=== PATIENT | female | born 1945 | race Caucasian/White ===

== ENCOUNTER 2018-12-06 15:31 | Inpatient (IN) | payer MEDICARE, OTHER, SELFPAY ==
[2018-12-06] VITALS (12 sets, daily range): BP systolic 97–136; BP diastolic 37–77; PULSE 50–78; RESP 13–18; TEMP 36.5–37.2; O2SAT 94–98; BMI 18.2
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
[2018-12-06] MEDS: TET,DIPH,PERTUSS(ACELL),VAC/PF 0.5 ML SYRINGE IM (16:24)
[2018-12-06 16:25] LABS: BUN Creatinine Ratio 41.7 (6-22); Blood Urea Nitrogen 25 mg/dL (7-17); Calcium 9.1 mg/dL (8.4-10.2); Carbon Dioxide 27 mmol/L (22-32); Chloride 105 mmol/L (98-107); Estimated Glomerular Filt Rate > 60.0 mL/min (>60); Glucose 129 mg/dL (80-110); HEMOLYSIS 44 (0-50); Potassium 4.1 mmol/L (3.4-5.1); Sodium 140 mmol/L (137-145)
--- NOTE | 2018-12-06 16:50 | PC.NURSE ---
bilateral eye pH 7.0
[2018-12-06] MEDS: MORPHINE 2 MG/ML INJ IV ×2 (17:06→18:43)
[2018-12-06] MEDS: SODIUM CHLORIDE 0.9% 1,000 ML 150 ML IV (17:06)
[2018-12-06] MEDS: ONDANSETRON 4 MG/2 ML INJ IV ×4 (17:06→22:55)
[2018-12-06 17:22] LABS: Add Manual Diff / Slide Review NO; Basophils Absolute Auto 0 /uL (0-100); Basophils Percent Auto 0.1 % (0-2); Eosinophils Absolute Auto 0 /uL (0-450); Eosinophils Percent Auto 0.1 % (2-4); Hematocrit 39.8 % (36-46); Hemoglobin 13.2 g/dL (12.0-16.0); Lymphocytes Absolute Auto 700 /uL (1100-4500); Lymphocytes Percent Auto 4.4 % (25-40); Mean Corpuscular HGB Conc 33.2 % (30-36); Mean Corpuscular Hemoglobin 29.9 PG (26-34); Mean Corpuscular Volume 90.1 fL (80-100); Monocytes Absolute Auto 700 /uL (0-900); Monocytes Percent Auto 4.2 % (3-14); Neutrophils Absolute Auto 14000 /uL (1500-7000); Neutrophils Percent Auto 91.2 % (50-75); Platelet Count 184 X10^3/uL (150-400); Red Blood Cell Count 4.41 X10^6/uL (4.0-5.2); Red Cell Distribution Width 13.1 % (11.6-14.8); White Blood Cell Count 15.4 X10^3/uL (4.5-11.0)
[2018-12-06 17:26] LABS: PTT Partial Thromboplastin Tim 31 SECONDS (26.4-36.2)
[2018-12-06 17:28] LABS: Creatine Kinase 604 U/L (30-135); Lipase 96 U/L (23-300)
[2018-12-06 17:29] LABS: Alanine Aminotransferase 53 IU/L (9-52); Albumin 3.9 g/dL (3.5-5.0); Albumin Globulin Ratio 1.4 (1.0-2.8); Alkaline Phosphatase 55 U/L (38-126); Aspartate Aminotransferase 68 IU/L (14-36); Bilirubin Total 0.5 mg/dL (0.2-1.3); Bilirubin Unconjugated 0.4 mg/dL (0.0-1.1); Globulin 2.8 g/dL (1.7-4.1); HEMOLYSIS < 15 (0-50); Total Protein 6.7 g/dL (6.3-8.2)
[2018-12-06 17:40] LABS: Troponin I < 0.012 ng/mL (0.01-0.034)
[2018-12-06] MEDS: ACETAMINOPHEN 325 MG TABLET 975 MG PO (18:44)
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
--- NOTE | 2018-12-06 21:14 | PC.NURSE ---
PATIENT TAKEN IN BED TO IMAGING, HARD COLLAR IN PLACE,SCDs ON NPO
[2018-12-06] MEDS: LACTATED RINGERS 500 ML 1000 ML IV (21:46)
[2018-12-06] MEDS: LACTATED RINGERS 1,000 ML 84 ML IV (21:46)
[2018-12-06] MEDS: GABAPENTIN 600 MG TABLET PO (21:47)
[2018-12-06] MEDS: HEPARIN 5,000 UNIT/ML VIAL 5000 UNIT SUBCUT (21:47)
[2018-12-06] MEDS: CELECOXIB 100 MG CAPSULE 200 MG PO (21:47)
[2018-12-06] MEDS: METHOCARBAMOL 500 MG TABLET 750 MG PO (21:50)
[2018-12-06] MEDS: POLYETHYLENE GLYCOL 3350 17 GM POWD.PACK PO (22:01)
[2018-12-06] MEDS: ACETAMINOPHEN 325 MG TABLET 650 MG PO (23:43)
[2018-12-07] VITALS (7 sets, daily range): BP systolic 93–121; BP diastolic 46–61; PULSE 50–92; RESP 14–18; TEMP 36.2–36.7; O2SAT 92–97
[2018-12-07] MEDS: HYDROMORPHONE 0.5 MG INJ IV (01:13)
[2018-12-07] MEDS: PROMETHAZINE 12.5 MG SUPP PR (03:30)
--- NOTE | 2018-12-07 03:42 | PC.NURSE ---
Up to bsc observing spinal precautions and robert well an voided, UA sent. Had nausea and emesis again with movement and phenergan supp given.
[2018-12-07] MEDS: LACTATED RINGERS 1,000 ML 84 ML IV ×2 (04:43→16:24)
[2018-12-07 05:38] LABS: Add Manual Diff / Slide Review NO; Basophils Absolute Auto 0 /uL (0-100); Basophils Percent Auto 0.2 % (0-2); Eosinophils Absolute Auto 0 /uL (0-450); Hemoglobin 11.4 g/dL (12.0-16.0); Lymphocytes Absolute Auto 500 /uL (1100-4500); Lymphocytes Percent Auto 6.1 % (25-40); Mean Corpuscular HGB Conc 34.6 % (30-36); Mean Corpuscular Hemoglobin 30.7 PG (26-34); Mean Corpuscular Volume 88.9 fL (80-100); Monocytes Absolute Auto 400 /uL (0-900); Monocytes Percent Auto 4.8 % (3-14); Neutrophils Absolute Auto 8000 /uL (1500-7000); Neutrophils Percent Auto 88.9 % (50-75); Platelet Count 141 X10^3/uL (150-400); Red Blood Cell Count 3.72 X10^6/uL (4.0-5.2); Red Cell Distribution Width 13.2 % (11.6-14.8)
[2018-12-07 05:44] LABS: BUN Creatinine Ratio 38.3 (6-22); Blood Urea Nitrogen 23 mg/dL (7-17); Calcium 8.5 mg/dL (8.4-10.2); Carbon Dioxide 29 mmol/L (22-32); Chloride 105 mmol/L (98-107); Estimated Glomerular Filt Rate > 60.0 mL/min (>60); Glucose 135 mg/dL (80-110); HEMOLYSIS < 15 (0-50); Magnesium 2.2 mg/dL (1.6-2.3); Potassium 3.9 mmol/L (3.4-5.1); Sodium 138 mmol/L (137-145)
[2018-12-07] MEDS: ACETAMINOPHEN 325 MG TABLET 650 MG PO ×4 (06:34→23:57)
[2018-12-07] MEDS: HEPARIN 5,000 UNIT/ML VIAL 5000 UNIT SUBCUT ×3 (06:35→20:57)
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
[2018-12-07] MEDS: ASPIRIN EC 81 MG TABLET PO (10:17)
[2018-12-07] MEDS: METHOCARBAMOL 500 MG TABLET 750 MG PO ×4 (10:17→20:55)
[2018-12-07] MEDS: POLYETHYLENE GLYCOL 3350 17 GM POWD.PACK PO ×2 (10:32→20:57)
[2018-12-07] MEDS: CELECOXIB 200 MG CAPSULE PO ×2 (11:19→20:55)
--- NOTE | 2018-12-07 11:42 | PC.NURSE ---
SHIFT 7a - 3p Report received, care assumed. Pt. slightly groggy but oriented, pleasant, denies pain. Hard cervical collar in place. Discussed spinal precautions. Pt states she was allowed to get up to BSC previously; I verified the full spinal precautions order. Imaging ordered of the lumbar spine and radiology came with a wheelchair to get pt; again, verified pt. has spinal precautions and is not permitted to sit. (Dr. Campos says she is ok to stand for lumbar x-ray, but is not to sit on wheelchair or BSC.) orthopedic tech says they will come back for her later. Confirmed with Dr. Campos that pt. needs to travel to radiology via bed/gurney, then log roll to a standing position the best she is able. Radiology informed, pt. to XR at 1220.
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
--- NOTE | 2018-12-07 14:34 | PM.CHAP ---
flag on file. Stopped to visit and pray with patient at her request. referral to [facility].
--- NOTE | 2018-12-07 16:53 | PC.NURSE ---
Addendum entered by Michelle Sagastume R.N. 12/07/18 22:34: Beverly has voided tonight. Walked hallways x 2, reports some pain relief from mobilization. Gait steady w/fww & SBA. Addendum entered by Michelle Sagastume R.N. 12/07/18 18:35: Dr Campos in room to consult with patient & her spouse. New orders for general diet. I called in dinner order for her. also ordered for patient to get up & walk in hallway & to assess mobility. She is eating meal now, requesting to get up and walk after finished with meal. Original Note: Evening note: Beverly resting in bed, laying flat with hard cervical collar on. She is Ox3, conversive, speech clear. VS stable, BP borderline 93/61. Reports pain tolerable, denies need for IV Dilaudid. She reports slight urge to void, 2 assist to stand at bedside using strict logrolling technique & full spinal precautions. Pt unable to void, reports pesary is probably in the way. Bladder scan = 278 ml and 253 ml. Back to bed, will reassess. Remains NPO, awaiting surgeon round to discuss xray results.
--- NOTE | 2018-12-07 17:53 | P.PN_ITS ---
Subjective Date Patient Seen: 12/07/18 Time Patient Seen: 17:51 Interval history: Upright lumbar spine films reviewed and discussed with Dr Dasilva of [facility] Neurosurgery. Lumbar spine fracture is stable and does not need external bracing or internal fixation. Patient is cleared to mobilize from Spine perspective In addition C-spine re-examine no posterior tenderness no tenderness with flexion extension or rotation. Continues to have full sensation of motion in all 4 extremities distally Spine is now fully cleared Okay to ambulate Okay for diet Exam Vital Signs (past 8 hours): - 12/07/18 11:22 12/07/18 15:30 12/07/18 16:12 Temperature 97.8 F 97.1 F L Pulse Rate 50 L 50 L Respiratory Rate 16 18 Blood Pressure 100/56 L 96/61 Pulse Oximetry 96 95 97 Oxygen Delivery Method Room Air Oxygen Flow Rate 0 Objective Labs Result Diagrams: 12/07/18 05:00 12/07/18 05:00 Labs: Laboratory Results - last 24 hr 12/06/18 12/07/18 12/07/18 16:55 05:00 05:00 WBC 9.0 RBC 3.72 L Hgb 11.4 L Hct 33.0 L MCV 88.9 MCH 30.7 MCHC 34.6 RDW 13.2 Plt Count 141 L Neut % (Auto) 88.9 H Lymph % (Auto) 6.1 L [place] % (Auto) 4.8 Eos % (Auto) 0.0 L Baso % (Auto) 0.2 Neut # (Auto) 8000 H Lymph # (Auto) 500 L [place] # (Auto) 400 Eos # (Auto) 0 Baso # (Auto) 0 Sodium 138 Potassium 3.9 Chloride 105 Carbon Dioxide 29 BUN 23 H Creatinine 0.60 Estimated GFR > 60.0 BUN/Creatinine Ratio 38.3 H Glucose 135 H Calcium 8.5 Magnesium 2.2 Blood Type A Positive Antibody Screen Negative Quality VTE Deep Vein Thrombosis/Pulmonary Embolism Present on Admission: No
[2018-12-07] MEDS: GABAPENTIN 600 MG TABLET PO (20:57)
[2018-12-08 00:42] VITALS: O2SAT 92
--- NOTE | 2018-12-08 02:28 | PC.NURSE ---
Patient ambulated the hallway from 0210 to 0230 and using a front wheel walker. Steady gait with no observed weakness.
[2018-12-08] MEDS: LACTATED RINGERS 1,000 ML 84 ML IV (05:32)
[2018-12-08] MEDS: ACETAMINOPHEN 325 MG TABLET 650 MG PO ×2 (05:34→09:41)
[2018-12-08] MEDS: HEPARIN 5,000 UNIT/ML VIAL 5000 UNIT SUBCUT (05:35)
[2018-12-08 05:41] VITALS: BP 122/52; PULSE 54; RESP 16; TEMP 36.4; O2SAT 93
[2018-12-08 07:00] VITALS: O2SAT 97
[2018-12-08 07:32] VITALS: BP 111/65; PULSE 65; RESP 16; TEMP 36.4; O2SAT 96
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
[2018-12-08] MEDS: CELECOXIB 200 MG CAPSULE PO (09:08)
[2018-12-08] MEDS: METHOCARBAMOL 500 MG TABLET 750 MG PO (09:08)
[2018-12-08] MEDS: ASPIRIN EC 81 MG TABLET PO (09:08)
--- NOTE | 2018-12-08 10:06 | CM.DPC ---
Addendum entered by Che Myers LPN 12/08/18 11:15: Met with pt and her as she was up walking in the halls with the FWW. Both of them stated that Dr. Dsouza did address the ? of therapy involvement but said it was not necessary. Pt is using a FWW because I wanted to go fast, may get one in the community but is not certain she will need one. She does plan to get a BSC from a service club in [place]. She also says she used to have a sock aide after a hip surgery and thought it would be very helpful. Checked in with therapy dept and they were able to give one to her to take home. P: Both left for home as per plan. Original Note: DCP: continued: Case discussed in Team Rounds and a d/c to home order was noted. PT and OT were not ordered as Dr. Campos saw pt last evening and ok'd her to mobilize in halls and with nursing. He noted the stability of the L5 compression fracture and she is out of prior cervical precautions. Pt is using a FWW so will need to make sure she has this for home. P: home today, spouse supportive assist.
== END 2018-12-08 11:02 | disposition home or self-care (01) | DRG 184 ==
LOC: ED 18:52 → AC 19:24
PROVIDERS: Admitting Provider Surgery; Emergency Provider Emergency Medicine; Family Provider Family Medicine; PCP Family Medicine; Visit Provider Surgery
DX: S22.41XA Multiple fractures of ribs, right side, initial encounter for closed fracture (principal); S22.20XA Unspecified fracture of sternum, initial encounter for closed fracture; S32.050A Wedge compression fracture of fifth lumbar vertebra, initial encounter for closed fracture; S61.210A Laceration without foreign body of right index finger without damage to nail, initial encounter; V43.62XA Car passenger injured in collision with other type car in traffic accident, initial encounter; W22.12XA Striking against or struck by front passenger side automobile airbag, initial encounter
CPT/HCPCS: 12001; 36415; 36591; 70498; 71260; 72100; 72125; 72128; 72131; 73130; 80048; 80076; 82550; 82553; 83690; 83735; 84484; 85025; 85610; 85730; 86850; 86900; 86901; 93005; 93010; 96374; 96375; 96376; 99285; 90715; J1170; J1644; J2270; J2405; Q9967

== ENCOUNTER 2024-02-12 11:15 | Outpatient (RCR) | payer MEDICARE, OTHER, SELFPAY ==
[2018-12-06 19:36] VITALS: BMI 18.2
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
--- NOTE | 2023-11-03 15:36 | PT.OPPOC ---
Physical, Occupational & Speech Therapy At [facility] Current Diagnoses Constipation, unspecified (11/03/23) Muscle weakness (generalized) (11/03/23) Stress incontinence (female) (male) (11/03/23) Uterovaginal prolapse, unspecified (11/03/23) Visit Care Team Role Provider Type Oliver Ham MD Primary Care Provider Non-Staff Specialty: [facility] Address: [address] [place] [address], [id number] Email: Tawanda Boo MD Family Provider Non-Staff Specialty: [facility] Address: [address] [place] [address], [id number] Email: LA NENA Pineda Attending Provider Non-Staff Referring Provider Specialty: Nursing Address: Located [facility], [address] [place], [place] [address]m[address], [place], [address] Email: Plan Of Care PT-OP-T Assessment and Plan Start: 10/27/23 17:28 Freq: Status: Active Protocol: Document 11/03/23 09:54 LRN (Rec: 11/03/23 12:44 LRN [id number]) Physical Therapy Assessment Rehab Potential Rehabilitation Potential Good Evaluation Complexity Number of Personal Factors/Comorbidities 3 or More Number of Body Systems Impaired 4 or More Clinical Presentation at Evaluation Evolving Impairments Impairments Activity Tolerance, Coordination,Posture,ROM, Strength,Transfers Other Impairments Urinary Incontinence Goals Two Impairment PF weakness causing urinary leakage with cough/sneeze Retail Route Supervisor Goal (LTG) Pt will be able to tighten PF muscles to cough or sneeze without urinary leakage. LTG Duration 10 wks-01/09/24 One Impairment Pt lacks an independent self care HEP. Short Term Goal (STG) Pt educated in proper transfers to lessen core abdominal pressure. STG Duration 4 wks-11/25/23 Retail Route Supervisor Goal (LTG) Pt will be independent in a self care HEP for PF strengthening. LTG Duration 10 wks-01/09/24 Assessment Summary Assessment Pt is a 78 yo female who presents with diagnosis of uterovaginal prolapse, with complaints of stress urinary incontinence with coughing or sneezing. Constipation has been typical during her life, and pessary use since 2000 and may be a factor in her urinary leakage. It was decided to postpone internal PF assessment of the PF until next appt as her spouse was present during the evaluation. Per PF external assessment, the pt has no areas of tenderness and she has some PF descent with bearing down, indicating PF weakness. As the pt has worn a pessary since 2000 with removal only to clean and for intercourse it is expected that she has Stress Urinary Incontinence ( DAE) due to PF weakness, improper breathing mechanics, proper breathing with functional mobility and ADLs, strength changes due to postural changes (scoliosis) and voiding mechanics. She appears to have weakness of her superficial PF muscles and deep ms will be assessed at the next visit. The pt will benefit from skilled physical therapy to address the previously stated dysfunctions and to promote changes to achieve the above stated goals . Physical Therapy Plan Frequency and Duration Frequency of Treatment 1x/Week Duration of treatment (weeks) 10 Plan of Care Start Date 11/03/23 Plan of Care End Date 01/09/24 Therapeutic Interventions Therapeutic Interventions Home Exercise Program,Manual Therapy,Neuromuscular Re- education,Self-Care/Home Management,Soft Tissue Mobilization,Therapeutic Activities,Therapeutic Exercises Modalities Biofeedback,Electric Stimulation Next Visit Focus/Plan Next Note Type Treatment Note Next Visit Plan Next: Complete manual PF assessment & PROM hips. Discuss use of biofeedback and pt removal of pessary before coming to therapy. Review bladder diary, and bowel involvement with recommendations as appropriate . Check if pt can Kegel w/o substitute ms & start HEP Kegels and with asst. Pt education in bladder retraining with urge deference technique, proper Kegel without use of substitute muscles, reduction of intra- abdominal pressure, proper deep breathing, and proper breathing with ADLs, transfers , body mechanics and exercise. EX Strengthening: PF, Hips ( Flex L, Ext R, AB R>L, ER kalpana, IR R), Trunk/Core. EX: Stretches: Hip (R Rot, R SB). POC: Pt education, Manual therapy. Biofeedback with vaginal sensor. Therapeutic Exercises, Therapeutic Activities, Neuromuscular Reeducation. Plan of Care Dates Plan of Care Start Date 11/03/23 Plan of Care End Date 01/09/24 Electronically Signed by: Nataly Angeles, PT 11/04/23 1536 If you are in agreement with this Plan of Care, please return a signed and dated copy. I have reviewed this Plan of Care and certify that the skilled therapy services above are required to meet the patient?s needs. Physician Signature Date Printed Name and Credentials Clinical Instructor Signature Printed Name and Credentials
--- NOTE | 2023-12-08 15:26 | PT.OTN ---
Current Diagnoses Constipation, unspecified (12/08/23) Muscle weakness (generalized) (12/08/23) Stress incontinence (female) (male) (12/08/23) Uterovaginal prolapse, unspecified (12/08/23) Physical Therapy Treatment Note PT-OP-A Visit Information Start: 10/27/23 17:28 Freq: Status: Active Protocol: Document 12/08/23 10:46 LRN (Rec: 12/08/23 11:33 LRN [id number]) Out-Patient Physical Therapy Visit Information Visit Information Visit Type Treatment Note Visit Start Time 10:47 Visit Stop Time 11:28 Visit Number 2 Evaluation Information Evaluation Date 11/03/23 Precautions Precautions Osteoporosis, R LYUBOV 2015 believed to be posterior hip. PT-OP-B Current Condition Start: 10/27/23 17:28 Freq: Status: Active Protocol: Document 11/03/23 09:54 LRN (Rec: 11/03/23 12:44 LRN [id number]) Current Condition History of Current Condition Onset Date 2-3 wks ago (August 22, 2023) History of Current Condition Uterovaginal Prolapse. Has had pessary since 2000 and was very painful to get out because ms had tightened too much. Was given estrodial and was able to remove pessary for intercourse. Keeps pessary in all the time except for intercourse and for cleaning every couple of weeks . When coughs or sneezes with pessary in, she has urinary leakage. In her life she typically had constipation . Developmental History Developmental History Does gentle exer 3x/week at local gym for 1.5 hrs (light wgts), aerobic ex. Treatment Goals Patient/Caregiver Goals Pt goals: Be able to tighten muscle to cough or sneeze without urinary leakage. HEP. Personal Factors Other Personal Factors That May Effect -R posterior LYUBOV 2014, Therapy/Recovery -After 3rd baby (1992) dx'd with strangulated bowel (going thru hole in pelvis) & R Hernia repair with mesh; -1987 2nd baby - incontinence due to big head baby requiring pessary, episiotomy with 1st & 2nd births (crowned for an hour). 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 -3 pregs, 3 vaginal births. PT-OP-C Subjective Start: 10/27/23 17:28 Freq: Status: Active Protocol: Document 12/08/23 10:46 LRN (Rec: 12/08/23 11:33 LRN [id number]) OP-PT Subjective Patient Comments Patient Comments Left her bladder diary at home . States she has learned a lot with the breathing technique and hasn't done it regularly because as a irving it was different. Requests to have PF assessment next visit , due to wanting to talk more before doing any interanl procedures. States PT might be able to feel the pessary because sometimes it sticks out. PT-OP-I Pelvic Floor Start: 10/27/23 17:28 Freq: Status: Active Protocol: Document 12/08/23 10:46 LRN (Rec: 12/08/23 11:33 LRN [id number]) Pelvic Floor Assessment Comments Pelvic Floor Comments External Palpation of PF: NO Pain. Pessary handle not felt. PT-OP-J Posture/Palpation/Skin Start: 10/27/23 17:28 Freq: Status: Active Protocol: Document 11/03/23 09:54 LRN (Rec: 11/03/23 12:44 LRN [id number]) Posture Evaluation Position Standing Head/C-Spine Posture Forward Head T-Spine Posture Increased Kyphosis L-Spine Posture Shifted Left Pelvis Posture (R) Rotated Posterior Comments Posture Comments Scoliosis of spine (upper spine: apex on R, lower spine: apex mildly on L) PT-OP-K Range of Motion Start: 10/27/23 17:28 Freq: Status: Active Protocol: Document 12/08/23 10:46 LRN (Rec: 12/08/23 11:33 LRN [id number]) Hip Goniometric Range of Motion Hip Left Passive Internal Rotation 30 External Rotation 40 Right Passive Internal Rotation 45 External Rotation 24 Comments LYUBOV side (2015) with pt guarded with mobility. PT-OP-M Strength Start: 10/27/23 17:28 Freq: Status: Active Protocol: Document 11/03/23 09:54 LRN (Rec: 11/03/23 12:44 LRN [id number]) Trunk Strength Trunk Manual Muscle Testing Core Stabilization Fair core stabilization with loss of stability with MMT of LE's. Hip Strength Hip Manual Muscle Testing Right Extension (S1) 3 Fair Abduction 2+ Poor+ External Rotation 3 Fair Internal Rotation 3 Fair Comments Strength is 5/5 except as indicated above Left Flexion (L2) 3- Fair- Abduction 4 Good External Rotation 3+ Fair+ Comments Strength is 5/5 except as indicated above PT-OP-Q Treatments Start: 10/27/23 17:28 Freq: Status: Active Protocol: Document 12/08/23 10:46 LRN (Rec: 12/08/23 11:33 LRN [id number]) Therapeutic Exercises Supine Exercises Long hold Kegels Supine Exercise Name 10 SH 10 SR Equipment Used Pillow under hips Reps/Minutes 10 SH/10 SR Quick Kegels Supine Exercise Name 1 sec hold 2 sec rest Equipment Used Pillow under hips Reps/Minutes 1 SH/2 SR, 10x 3 Hip IR stretch Supine Exercise Name Knee to opp shoulder Side left Hip ER stretch Supine Exercise Name Assisted gentle hip ER stretch Side right Self-Care/Home Management Treatment Education Other Education Pt educated at length in PF anatomy at her request to be educated on how to do ex's regularly. Discussed at length involvement of tight/tender and asymetrical mobility of hip muscles. Discussed PF assessment via only PF palpation exterally. Pt/discussed using estrogen 1- 2x/week. Activities Self-Care/Home Management Activities Issued HEP: Kegels quick & Long Hold and Aggrevators PT-OP-T Assessment and Plan Start: 10/27/23 17:28 Freq: Status: Active Protocol: Document 12/08/23 10:46 LRN (Rec: 12/08/23 11:33 LRN [id number]) Physical Therapy Assessment Goals Two Impairment PF weakness causing urinary leakage with cough/sneeze Patient Sitter Goal (LTG) Pt will be able to tighten PF muscles to cough or sneeze without urinary leakage. LTG Duration 10 wks-01/09/24 One Impairment Pt lacks an independent self care HEP. Short Term Goal (STG) Pt educated in proper transfers to lessen core abdominal pressure. STG Duration 4 wks-11/25/23 Assisted Goal (LTG) Pt will be independent in a self care HEP for PF strengthening. LTG Duration 10 wks-01/09/24 Assessment Summary Assessment Pt is a 78 yo female who presents with diagnosis of uterovaginal prolapse, with complaints of DAE with coughing or sneezing; chroniic constipation and pessary since 2000 may be a factor in urinary leakage. Hip mobility very restricted ER R>L and IR L. It was decided by pt to postpone internal PF assessment until next appt as pt wanting to discuss treatment first. Pt voices having spouse in room is okay. Pt appears to need much discussion and education to feel less hesitant during therapy and with plan. Physical Therapy Plan Frequency and Duration Frequency of Treatment 1x/Week Duration of treatment (weeks) 10 Plan of Care Start Date 11/03/23 Plan of Care End Date 01/09/24 Next Visit Focus/Plan Next Note Type Treatment Note Next Visit Plan Next: Complete manual PF assessment. Discuss use of biofeedback and pt removal of pessary before coming to therapy. Review bladder diary , and bowel involvement with recommendations as appropriate . Check if pt can Kegel w/o substitute ms & start HEP Kegels and with asst. Pt education in bladder retraining with urge deference technique, proper Kegel without use of substitute muscles, reduction of intra- abdominal pressure, proper deep breathing, and proper breathing with ADLs, transfers , body mechanics and exercise. EX Strengthening: PF, Hips ( Flex L, Ext R, AB R>L, ER kalpana, IR R), Trunk/Core. EX: Stretches: Hip (R Rot, R SB). POC: Pt education, Manual therapy. Biofeedback with vaginal sensor. Therapeutic Exercises, Therapeutic Activities, Neuromuscular Reeducation.
--- NOTE | 2023-12-22 16:02 | PT.OTN ---
Current Diagnoses Constipation, unspecified (12/22/23) Muscle weakness (generalized) (12/22/23) Stress incontinence (female) (male) (12/22/23) Uterovaginal prolapse, unspecified (12/22/23) Physical Therapy Treatment Note PT-OP-A Visit Information Start: 10/27/23 17:28 Freq: Status: Active Protocol: Document 12/22/23 14:33 LRN (Rec: 12/22/23 16:00 LRN [id number]) Out-Patient Physical Therapy Visit Information Visit Information Visit Type Treatment Note Visit Note Pt present throughout therapy with pt agreeable to having spouse present and for internal manual assessment. Visit Start Time 14:33 Visit Stop Time 15:14 Visit Number 3 Evaluation Information Evaluation Date 11/03/23 Precautions Precautions Dehisched area in vaginal canal (PF clock 12-3), Osteoporosis, R LYUBOV 2016 believed to be posterior hip. PT-OP-B Current Condition Start: 10/27/23 17:28 Freq: Status: Active Protocol: Document 11/03/23 09:54 LRN (Rec: 11/03/23 12:44 LRN [id number]) Current Condition History of Current Condition Onset Date 2-3 wks ago (August 22, 2023) History of Current Condition Uterovaginal Prolapse. Has had pessary since 2000 and was very painful to get out because ms had tightened too much. Was given estrodial and was able to remove pessary for intercourse. Keeps pessary in all the time except for intercourse and for cleaning every couple of weeks . When coughs or sneezes with pessary in, she has urinary leakage. In her life she typically had constipation . Developmental History Developmental History Does gentle exer 3x/week at local gym for 1.5 hrs (light wgts), aerobic ex. Treatment Goals Patient/Caregiver Goals Pt goals: Be able to tighten muscle to cough or sneeze without urinary leakage. HEP. Personal Factors Other Personal Factors That May Effect -R posterior LYUBOV 2014, Therapy/Recovery -After 3rd baby (1992) dx'd with strangulated bowel (going thru hole in pelvis) & R Hernia repair with mesh; -1987 2nd baby - incontinence due to big head baby requiring pessary, episiotomy with 1st & 2nd births (crowned for an hour). 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 -3 pregs, 3 vaginal births. PT-OP-C Subjective Start: 10/27/23 17:28 Freq: Status: Active Protocol: Document 12/22/23 14:33 LRN (Rec: 12/22/23 16:00 LRN [id number]) OP-PT Subjective Patient Comments Patient Comments Hardly ever leak, only on waking in the middle of the night, and with cough. Did leak a little in the middle of the night. Pt agreeing to having a PF assessment today, states she has her pessary out for assessment, removed at gym today. PT-OP-I Pelvic Floor Start: 10/27/23 17:28 Freq: Status: Active Protocol: Document 12/22/23 14:33 LRN (Rec: 12/22/23 16:00 LRN [id number]) Pelvic Floor Assessment Pelvic Clock Pelvic Clock Other Extra time taken for PF assessment of visual check at vaginal opening. PF tissues showing dehisced area in vaginal canal (12-3 of PF clock region) of 1/2 cm in diameter. Pt shown with mirror, dehisced area of concern. Internal assessment deferred due to visible area of dehisced area. Pt had no c /o discomfort in the vaginal region. PT-OP-J Posture/Palpation/Skin Start: 10/27/23 17:28 Freq: Status: Active Protocol: Document 11/03/23 09:54 LRN (Rec: 11/03/23 12:44 LRN [id number]) Posture Evaluation Position Standing Head/C-Spine Posture Forward Head T-Spine Posture Increased Kyphosis L-Spine Posture Shifted Left Pelvis Posture (R) Rotated Posterior Comments Posture Comments Scoliosis of spine (upper spine: apex on R, lower spine: apex mildly on L) PT-OP-K Range of Motion Start: 10/27/23 17:28 Freq: Status: Active Protocol: Document 12/08/23 10:46 LRN (Rec: 12/08/23 11:33 LRN [id number]) Hip Goniometric Range of Motion Hip Left Passive Internal Rotation 30 External Rotation 40 Right Passive Internal Rotation 45 External Rotation 24 Comments LYUBOV side (2015) with pt guarded with mobility. PT-OP-M Strength Start: 10/27/23 17:28 Freq: Status: Active Protocol: Document 11/03/23 09:54 LRN (Rec: 11/03/23 12:44 LRN [id number]) Trunk Strength Trunk Manual Muscle Testing Core Stabilization Fair core stabilization with loss of stability with MMT of LE's. Hip Strength Hip Manual Muscle Testing Right Extension (S1) 3 Fair Abduction 2+ Poor+ External Rotation 3 Fair Internal Rotation 3 Fair Comments Strength is 5/5 except as indicated above Left Flexion (L2) 3- Fair- Abduction 4 Good External Rotation 3+ Fair+ Comments Strength is 5/5 except as indicated above PT-OP-Q Treatments Start: 10/27/23 17:28 Freq: Status: Active Protocol: Document 12/22/23 14:33 LRN (Rec: 12/22/23 16:00 LRN [id number]) Therapeutic Exercises Supine Exercises Long hold Kegels Supine Exercise Name 10 SH 10 SR Reps/Minutes 10 SH/10 SR Comments Extra time for completion of ex. Quick Kegels Supine Exercise Name 1 sec hold 2 sec rest Reps/Minutes 1 SH/2 SR, 10x Comments Pt performed for visual check of PF, mild anal wink noted, not clitoral nod Hip IR stretch Supine Exercise Name Knee to opp shoulder Reps/Minutes 3' Comments Good mobility therefore withheld stretch Hip ER stretch Supine Exercise Name Assisted gentle BKFO stretch Side right Reps/Minutes 10' Comments L side done to show R side mobility restriction Self-Care/Home Management Treatment Education Other Education Reviewed bladder diary and discussed use of Aggrevator training to prevent urinary leakage with cough or when getting up in middle of night. Discussed types and amount of fluids before bedtime, recommending water loading first in AM and during day with reduction of fluids later in PM. Activities Self-Care/Home Management Activities Strongly Recommended pt contact referring physician/ primary care physician today for assessment of her vaginal canal and treatment for skin tear. PT-OP-T Assessment and Plan Start: 10/27/23 17:28 Freq: Status: Active Protocol: Document 12/22/23 14:33 LRN (Rec: 12/22/23 16:00 LRN [id number]) Physical Therapy Assessment Goals Two Impairment PF weakness causing urinary leakage with cough/sneeze Residential Goal (LTG) Pt will be able to tighten PF muscles to cough or sneeze without urinary leakage. LTG Duration 10 wks-07/26/24 One Impairment Pt lacks an independent self care HEP. Short Term Goal (STG) Pt educated in proper transfers to lessen core abdominal pressure. STG Duration 4 wks-11/25/23 Residential Goal (LTG) Pt will be independent in a self care HEP for PF strengthening. LTG Duration 10 wks-01/09/24 Assessment Summary Assessment Pt is a 78 yo female who presents with diagnosis of uterovaginal prolapse, with complaints of DAE with coughing or sneezing; chronic constipation and pessary since 2000, very restricted hip mobility of ER R>L and IR L. Today, bladder diary review shows pt water loads more in PM than AM; therefore may be a factor in her leakage in bed or when getting up to void during the night. PF assessment delayed with extra time taken due to what appeared to be a dehiscence of tissue in vaginal canal at PF clock 12-3, and showing pt area of concern. No Vemg biofeedback planned. Pt noting no discomfort & it may have happened when pessary was removed at gym. Very red tissues showing with blood smearing at the L lateral edges of the dehisced tissue. Pt needing and I/S to contact referring physician for assessment and treatment. Physical Therapy Plan Frequency and Duration Frequency of Treatment 1x/Week Duration of treatment (weeks) 10 Plan of Care Start Date 11/03/23 Plan of Care End Date 01/09/24 Other Referrals/Consults Referrals/Consults Recommended Assessment of vaginal tissue dehisced. Next Visit Focus/Plan Next Note Type Treatment Note Next Visit Plan Next: Assess if pt had MD appt for vaginal tissue tear. Review w/pt bowel involvement with bladder diary, with recommendations as appropriate . Check if pt can Kegel w/o substitute ms & start HEP Kegels and with asst. Gentle (much lubrication) manual PF assessment when pt tissues of vagina have healed. Pt education in bladder retraining with urge deference technique, proper Kegel without use of substitute muscles, reduction of intra- abdominal pressure, proper deep breathing, and proper breathing with ADLs, transfers , body mechanics and exercise. EX Strengthening: PF, Hips ( Flex L, Ext R, AB R>L, ER kalpana, IR R), Trunk/Core. EX: Stretches: Trunk R SB. POC: Note: No Vemg biofeedback. Pt education, Manual therapy. Therapeutic Exercises, Therapeutic Activities, Neuromuscular Reeducation.
--- NOTE | 2024-02-12 12:42 | PT.OTN ---
Current Diagnoses Constipation, unspecified (02/12/24) Muscle weakness (generalized) (02/12/24) Stress incontinence (female) (male) (02/12/24) Uterovaginal prolapse, unspecified (02/12/24) Physical Therapy Treatment Note PT-OP-A Visit Information Start: 10/27/23 17:28 Freq: Status: Active Protocol: Document 02/12/24 11:21 LRN (Rec: 02/12/24 12:31 LRN [id number]) Out-Patient Physical Therapy Visit Information Visit Information Visit Type Progress Note Visit Note Pt present throughout therapy with pt agreeable to having spouse present and for internal manual assessment. Visit Start Time 11:20 Visit Stop Time 11:50 Visit Number 4 Evaluation Information Evaluation Date 11/03/23 Precautions Precautions Dehisched area in vaginal canal (PF clock 12-3), Osteoporosis, R LYUBOV 2016 believed to be posterior hip. PT-OP-B Current Condition Start: 10/27/23 17:28 Freq: Status: Active Protocol: Document 11/03/23 09:54 LRN (Rec: 11/03/23 12:44 LRN [id number]) Current Condition History of Current Condition Onset Date 2-3 wks ago (August 22, 2023) History of Current Condition Uterovaginal Prolapse. Has had pessary since 2000 and was very painful to get out because ms had tightened too much. Was given estrodial and was able to remove pessary for intercourse. Keeps pessary in all the time except for intercourse and for cleaning every couple of weeks . When coughs or sneezes with pessary in, she has urinary leakage. In her life she typically had constipation . Developmental History Developmental History Does gentle exer 3x/week at local gym for 1.5 hrs (light wgts), aerobic ex. Treatment Goals Patient/Caregiver Goals Pt goals: Be able to tighten muscle to cough or sneeze without urinary leakage. HEP. Personal Factors Other Personal Factors That May Effect -R posterior LYUBOV 2014, Therapy/Recovery -After 3rd baby (1992) dx'd with strangulated bowel (going thru hole in pelvis) & R Hernia repair with mesh; -1987 2nd baby - incontinence due to big head baby requiring pessary, episiotomy with 1st & 2nd births (crowned for an hour). 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 -3 pregs, 3 vaginal births. PT-OP-C Subjective Start: 10/27/23 17:28 Freq: Status: Active Protocol: Document 02/12/24 11:21 LRN (Rec: 02/12/24 12:31 LRN [id number]) OP-PT Subjective Patient Comments Patient Comments States she woke once and leaked a little (3 nights ago) , otherwise no leakage. Feels the ex's from last session was very helpful. Pt is agreable to short session and discharge to [facility] today, and will return if she feels further therapy is needed at a later date with new referral. States she did not go to MD after last session and that she felt she had healed in vaginal canal by the next day. Patient Questionnaires Pelvic Pain and Urgency/Frequency Patient Symptom Scale Pelvic Pain Score 4 (previous score was 2) PT-OP-I Pelvic Floor Start: 10/27/23 17:28 Freq: Status: Active Protocol: Document 12/22/23 14:33 LRN (Rec: 12/22/23 16:00 LRN [id number]) Pelvic Floor Assessment Pelvic Clock Pelvic Clock Other Extra time taken for PF assessment of visual check at vaginal opening. PF tissues showing dehisced area in vaginal canal (12-3 of PF clock region) of 1/2 cm in diameter. Pt shown with mirror, dehisced area of concern. Internal assessment deferred due to visible area of dehisced area. Pt had no c /o discomfort in the vaginal region. PT-OP-J Posture/Palpation/Skin Start: 10/27/23 17:28 Freq: Status: Active Protocol: Document 11/03/23 09:54 LRN (Rec: 11/03/23 12:44 LRN [id number]) Posture Evaluation Position Standing Head/C-Spine Posture Forward Head T-Spine Posture Increased Kyphosis L-Spine Posture Shifted Left Pelvis Posture (R) Rotated Posterior Comments Posture Comments Scoliosis of spine (upper spine: apex on R, lower spine: apex mildly on L) PT-OP-K Range of Motion Start: 10/27/23 17:28 Freq: Status: Active Protocol: Document 12/08/23 10:46 LRN (Rec: 12/08/23 11:33 LRN [id number]) Hip Goniometric Range of Motion Hip Left Passive Internal Rotation 30 External Rotation 40 Right Passive Internal Rotation 45 External Rotation 24 Comments LYUBOV side (2015) with pt guarded with mobility. PT-OP-M Strength Start: 10/27/23 17:28 Freq: Status: Active Protocol: Document 11/03/23 09:54 LRN (Rec: 11/03/23 12:44 LRN [id number]) Trunk Strength Trunk Manual Muscle Testing Core Stabilization Fair core stabilization with loss of stability with MMT of LE's. Hip Strength Hip Manual Muscle Testing Right Extension (S1) 3 Fair Abduction 2+ Poor+ External Rotation 3 Fair Internal Rotation 3 Fair Comments Strength is 5/5 except as indicated above Left Flexion (L2) 3- Fair- Abduction 4 Good External Rotation 3+ Fair+ Comments Strength is 5/5 except as indicated above PT-OP-Q Treatments Start: 10/27/23 17:28 Freq: Status: Active Protocol: Document 02/12/24 11:21 LRN (Rec: 02/12/24 12:31 LRN [id number]) Therapeutic Exercises Supine Exercises Kegel/L1 BKFO Reps/Minutes 5 SH x 3-5 Comments Extra time needed for training of ex Kegel/Ball Squeeze Reps/Minutes 5 SH x 3-5 Comments Extra time needed for training of ex Long hold Kegels Supine Exercise Name Deandre - 10 SH Reps/Minutes 10 SH with rest Self-Care/Home Management Treatment Education Other Education Discussed to start pt's options for care with her being past her POC date. Pt chooses to DC to HEP with shortened visit and will return with new referral if more therapy is needed. Verbal review of her hip stretches for # of reps and times per day. Discussed at length not to overdo ex and to prevent R hip pain with resisted hip ex's and to vary intensity and reps of ex's based on her tolerance level. Pt educated in transfers with breath and Kegel. Activities Self-Care/Home Management Activities Issued & reviewed HEP: Coordinating transfer supine<> sit<>stand with breath/kegel. Issued & reviewed HEP: Sitting kegel with ball squeeze and resisted BKFO. PT-OP-T Assessment and Plan Start: 10/27/23 17:28 Freq: Status: Active Protocol: Document 02/12/24 11:21 LRN (Rec: 02/12/24 12:31 LRN [id number]) Physical Therapy Assessment Rehab Potential Rehabilitation Potential Good Evaluation Complexity Number of Personal Factors/Comorbidities 3 or More Number of Body Systems Impaired 4 or More Clinical Presentation at Evaluation Evolving Impairments Impairments Activity Tolerance, Coordination,ROM,Strength, Transfers Other Impairments Occasional Urinary Incontinence Goals Two Impairment PF weakness causing urinary leakage with cough/sneeze Nursing Home Goal (LTG) Pt will be able to tighten PF muscles to cough or sneeze without urinary leakage. 02/12/24: Report of urinary leakage x 1 of very small amount last week, otherwise no leakage. Pt has not been coughing or sneezing. LTG Duration 10 wks-01/09/24 (02/12/24: MET GOAL) One Impairment Pt lacks an independent self care HEP. Short Term Goal (STG) Pt educated in proper transfers to lessen core abdominal pressure. 02/12/24: Pt educated in transfers with breath and Kegel. STG Duration 4 wks-11/25/23 (02/12/24: MET GOAL) Nursing Home Goal (LTG) Pt will be independent in a self care HEP for PF strengthening. 12/08/23: HEP: Kegels quick & Long Hold and Aggrevators 02/12/24: HEP: Kegel with transfers/breath, Sitting Kegels with 1)Ball squeeze, 2) BKFO w/TBand. Issued Level 1 TBand for HEP. Reviewed previously issued HEP of hip ER stretch (fig 4 with foot crossed over the knee or placed next to medial side of the opp knee. LTG Duration 10 wks-01/09/24 (02/12/24: MET GOAL for current status). Assessment Summary Assessment Pt is a 78 yo female who initially presented with diagnosis of uterovaginal prolapse, with complaints of DAE with coughing or sneezing; chronic constipation and pessary since 2000. The pt is being seen today for placement on a HEP; therefore a new plan of care is needed for today's session. The pt was able to attend 4 visits over ~4 months. On her last visit attended visit on 12/22/23 she removed her pessary just before therapy and when starting PF assessment, bleeding was noted in vaginal canal, so assessment was not performed. The pt was advised to return to her referring physician for vaginal check, but the pt reports not contacting her physician because she felt she had healed by the next day. Pt has pessary in today; therefore PF assesment is not performed. Per discussion, pt appears to have lessened her onset of urinary leakage with exercise, but is reporting a little urinary leakage and doesn't know if she will leak with coughing or sneezing because she has not had to do either since her last session. The pt is choosing to continue working independently on her HEP and to discharge from therapy today. She understands that if she feels she needs further therapy she will need to seek a new referral. The pt would probably benefit from skilled PT in the future if urinary leakage worsens. The pt did meet her goals, but is still having occasional urinary leakage. Physical Therapy Plan Frequency and Duration Frequency of Treatment 1x/Week Duration of treatment (weeks) 1 Plan of Care Start Date 02/12/24 Plan of Care End Date 02/12/24 Therapeutic Interventions Therapeutic Interventions Home Exercise Program,Self- Care/Home Management, Therapeutic Activities, Therapeutic Exercises Discharge Physical Therapy Discharge Comments The pt is being discharged from therapy today after her appointment and her plan of care has been updated. She has chosen a shortened treatment today for placement on a HEP and discharge. As stated above, the pt has occasional urinary leakage and plans to continue with her PF ex's and will seek a new referral if she feels further therapy is needed. Thank you for your referral.
--- NOTE | 2024-02-12 12:43 | PT.OPPOC ---
Physical, Occupational & Speech Therapy At [facility] Current Diagnoses Constipation, unspecified (02/12/24) Muscle weakness (generalized) (02/12/24) Stress incontinence (female) (male) (02/12/24) Uterovaginal prolapse, unspecified (02/12/24) Visit Care Team Role Provider Type Oliver Ham MD Primary Care Provider Non-Staff Specialty: Family Practice Address: [address] [place] [address], [id number] Email: Tawanda Boo MD Family Provider Non-Staff Specialty: [facility] Address: [address] [place] [address], [id number] Email: [place] NENA Pineda Attending Provider Non-Staff Referring Provider Specialty: Nursing Address: [facility], [address] [place], [place] [address]m[address] [place], [place], [address] Email: Plan Of Care PT-OP-B Current Condition Start: 10/27/23 17:28 Freq: Status: Active Protocol: Document 11/03/23 09:54 LRN (Rec: 11/03/23 12:44 LRN [id number]) Current Condition History of Current Condition Onset Date 2-3 wks ago (August 22, 2023) History of Current Condition Uterovaginal Prolapse. Has had pessary since 2000 and was very painful to get out because ms had tightened too much. Was given estrodial and was able to remove pessary for intercourse. Keeps pessary in all the time except for intercourse and for cleaning every couple of weeks . When coughs or sneezes with pessary in, she has urinary leakage. In her life she typically had constipation . Developmental History Developmental History Does gentle exer 3x/week at local gym for 1.5 hrs (light wgts), aerobic ex. Treatment Goals Patient/Caregiver Goals Pt goals: Be able to tighten muscle to cough or sneeze without urinary leakage. HEP. Personal Factors Other Personal Factors That May Effect -R posterior LYUBOV 2015, Therapy/Recovery -After 3rd baby (1992) dx'd with strangulated bowel (going thru hole in pelvis) & R Hernia repair with mesh; -1987 2nd baby - incontinence due to big head baby requiring pessary, episiotomy with 1st & 2nd births (crowned for an hour). 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 -3 pregs, 3 vaginal births. PT-OP-T Assessment and Plan Start: 10/27/23 17:28 Freq: Status: Active Protocol: Document 02/12/24 11:21 LRN (Rec: 02/12/24 12:31 LRN [id number]) Physical Therapy Assessment Rehab Potential Rehabilitation Potential Good Evaluation Complexity Number of Personal Factors/Comorbidities 3 or More Number of Body Systems Impaired 4 or More Clinical Presentation at Evaluation Evolving Impairments Impairments Activity Tolerance, Coordination,ROM,Strength, Transfers Other Impairments Occasional Urinary Incontinence Goals Two Impairment PF weakness causing urinary leakage with cough/sneeze Nursing Home Goal (LTG) Pt will be able to tighten PF muscles to cough or sneeze without urinary leakage. 02/12/24: Report of urinary leakage x 1 of very small amount last week, otherwise no leakage. Pt has not been coughing or sneezing. LTG Duration 10 wks-01/09/24 (02/12/24: MET GOAL) One Impairment Pt lacks an independent self care HEP. Short Term Goal (STG) Pt educated in proper transfers to lessen core abdominal pressure. 02/12/24: Pt educated in transfers with breath and Kegel. STG Duration 4 wks-11/25/23 (02/12/24: MET GOAL) Nursing Home Goal (LTG) Pt will be independent in a self care HEP for PF strengthening. 12/08/23: HEP: Kegels quick & Long Hold and Aggrevators 02/12/24: HEP: Kegel with transfers/breath, Sitting Kegels with 1)Ball squeeze, 2) BKFO w/TBand. Issued Level 1 TBand for HEP. Reviewed previously issued HEP of hip ER stretch (fig 4 with foot crossed over the knee or placed next to medial side of the opp knee. LTG Duration 10 wks-01/09/24 (02/12/24: MET GOAL for current status). Assessment Summary Assessment Pt is a 78 yo female who initially presented with diagnosis of uterovaginal prolapse, with complaints of DAE with coughing or sneezing; chronic constipation and pessary since 2000. The pt is being seen today for placement on a HEP; therefore a new plan of care is needed for today's session. The pt was able to attend 4 visits over ~4 months. On her last visit attended visit on 12/22/23 she removed her pessary just before therapy and when starting PF assessment, bleeding was noted in vaginal canal, so assessment was not performed. The pt was advised to return to her referring physician for vaginal check, but the pt reports not contacting her physician because she felt she had healed by the next day. Pt has pessary in today; therefore PF assesment is not performed. Per discussion, pt appears to have lessened her onset of urinary leakage with exercise, but is reporting a little urinary leakage and doesn't know if she will leak with coughing or sneezing because she has not had to do either since her last session. The pt is choosing to continue working independently on her HEP and to discharge from therapy today. She understands that if she feels she needs further therapy she will need to seek a new referral. The pt would probably benefit from skilled PT in the future if urinary leakage worsens. The pt did meet her goals, but is still having occasional urinary leakage. Physical Therapy Plan Frequency and Duration Frequency of Treatment 1x/Week Duration of treatment (weeks) 1 Plan of Care Start Date 02/12/24 Plan of Care End Date 02/12/24 Therapeutic Interventions Therapeutic Interventions Home Exercise Program,Self- Care/Home Management, Therapeutic Activities, Therapeutic Exercises Discharge Physical Therapy Discharge Comments The pt is being discharged from therapy today after her appointment and her plan of care has been updated. She has chosen a shortened treatment today for placement on a HEP and discharge. As stated above, the pt has occasional urinary leakage and plans to continue with her PF ex's and will seek a new referral if she feels further therapy is needed. Thank you for your referral. Plan of Care Dates Plan of Care Start Date 02/12/24 Plan of Care End Date 02/12/24 Electronically Signed by: Nataly Angeles, PT 02/12/24 [id number] If you are in agreement with this Plan of Care, please return a signed and dated copy. I have reviewed this Plan of Care and certify that the skilled therapy services above are required to meet the patient?s needs. Physician Signature Date Printed Name and Credentials Clinical Instructor Signature Printed Name and Credentials
--- NOTE | 2024-02-12 12:45 | PT.OPDS ---
Current Diagnoses Constipation, unspecified (02/12/24) Muscle weakness (generalized) (02/12/24) Stress incontinence (female) (male) (02/12/24) Uterovaginal prolapse, unspecified (02/12/24) Visit Care Team Role Provider Type Oliver Ham MD Primary Care Provider Non-Staff Specialty: Family Practice Address: [address] [place] [address], [id number] Email: Tawanda Boo MD Family Provider Non-Staff Specialty: Family Practice Address: [address] [place] [address], [id number] Email: LA NENA Pineda Attending Provider Non-Staff Referring Provider Specialty: Nursing Address: [facility], [address] [place] [address] , [place], [address] Email: Visit Number Visit Number 4 Discharge Summary PT-OP-B Current Condition Start: 10/27/23 17:28 Freq: Status: Active Protocol: Document 11/03/23 09:54 LRN (Rec: 11/03/23 12:44 LRN [id number]) Current Condition History of Current Condition Onset Date 2-3 wks ago (August 22, 2023) History of Current Condition Uterovaginal Prolapse. Has had pessary since 2000 and was very painful to get out because ms had tightened too much. Was given estrodial and was able to remove pessary for intercourse. Keeps pessary in all the time except for intercourse and for cleaning every couple of weeks . When coughs or sneezes with pessary in, she has urinary leakage. In her life she typically had constipation . Developmental History Developmental History Does gentle exer 3x/week at local gym for 1.5 hrs (light wgts), aerobic ex. Treatment Goals Patient/Caregiver Goals Pt goals: Be able to tighten muscle to cough or sneeze without urinary leakage. HEP. Personal Factors Other Personal Factors That May Effect -R posterior LYUBOV 2015, Therapy/Recovery -After 3rd baby (1992) dx'd with strangulated bowel (going thru hole in pelvis) & R Hernia repair with mesh; -1987 2nd baby - incontinence due to big head baby requiring pessary, episiotomy with 1st & 2nd births (crowned for an hour). 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 -3 pregs, 3 vaginal births. PT-OP-C Subjective Start: 10/27/23 17:28 Freq: Status: Active Protocol: Document 02/12/24 11:21 LRN (Rec: 02/12/24 12:31 LRN [id number]) OP-PT Subjective Patient Comments Patient Comments States she woke once and leaked a little (3 nights ago) , otherwise no leakage. Feels the ex's from last session was very helpful. Pt is agreable to short session and discharge to [facility] today, and will return if she feels further therapy is needed at a later date with new referral. States she did not go to MD after last session and that she felt she had healed in vaginal canal by the next day. Patient Questionnaires Pelvic Pain and Urgency/Frequency Patient Symptom Scale Pelvic Pain Score 4 (previous score was 2) PT-OP-I Pelvic Floor Start: 10/27/23 17:28 Freq: Status: Active Protocol: Document 12/22/23 14:33 LRN (Rec: 12/22/23 16:00 LRN [id number]) Pelvic Floor Assessment Pelvic Clock Pelvic Clock Other Extra time taken for PF assessment of visual check at vaginal opening. PF tissues showing dehisced area in vaginal canal (12-3 of PF clock region) of 1/2 cm in diameter. Pt shown with mirror, dehisced area of concern. Internal assessment deferred due to visible area of dehisced area. Pt had no c /o discomfort in the vaginal region. PT-OP-J Posture/Palpation/Skin Start: 10/27/23 17:28 Freq: Status: Active Protocol: Document 11/03/23 09:54 LRN (Rec: 11/03/23 12:44 LRN [id number]) Posture Evaluation Position Standing Head/C-Spine Posture Forward Head T-Spine Posture Increased Kyphosis L-Spine Posture Shifted Left Pelvis Posture (R) Rotated Posterior Comments Posture Comments Scoliosis of spine (upper spine: apex on R, lower spine: apex mildly on L) PT-OP-K Range of Motion Start: 10/27/23 17:28 Freq: Status: Active Protocol: Document 12/08/23 10:46 LRN (Rec: 12/08/23 11:33 LRN [id number]) Hip Goniometric Range of Motion Hip Left Passive Internal Rotation 30 External Rotation 40 Right Passive Internal Rotation 45 External Rotation 24 Comments LYUBOV side (2016) with pt guarded with mobility. PT-OP-M Strength Start: 10/27/23 17:28 Freq: Status: Active Protocol: Document 11/03/23 09:54 LRN (Rec: 11/03/23 12:44 LRN [id number]) Trunk Strength Trunk Manual Muscle Testing Core Stabilization Fair core stabilization with loss of stability with MMT of LE's. Hip Strength Hip Manual Muscle Testing Right Extension (S1) 3 Fair Abduction 2+ Poor+ External Rotation 3 Fair Internal Rotation 3 Fair Comments Strength is 5/5 except as indicated above Left Flexion (L2) 3- Fair- Abduction 4 Good External Rotation 3+ Fair+ Comments Strength is 5/5 except as indicated above PT-OP-T Assessment and Plan Start: 10/27/23 17:28 Freq: Status: Active Protocol: Document 02/12/24 11:21 LRN (Rec: 02/12/24 12:31 LRN [id number]) Physical Therapy Assessment Rehab Potential Rehabilitation Potential Good Evaluation Complexity Number of Personal Factors/Comorbidities 3 or More Number of Body Systems Impaired 4 or More Clinical Presentation at Evaluation Evolving Impairments Impairments Activity Tolerance, Coordination,ROM,Strength, Transfers Other Impairments Occasional Urinary Incontinence Goals Two Impairment PF weakness causing urinary leakage with cough/sneeze Laboratory Phlebotomist Goal (LTG) Pt will be able to tighten PF muscles to cough or sneeze without urinary leakage. 02/12/24: Report of urinary leakage x 1 of very small amount last week, otherwise no leakage. Pt has not been coughing or sneezing. LTG Duration 10 wks-01/09/24 (02/12/24: MET GOAL) One Impairment Pt lacks an independent self care HEP. Short Term Goal (STG) Pt educated in proper transfers to lessen core abdominal pressure. 02/12/24: Pt educated in transfers with breath and Kegel. STG Duration 4 wks-11/25/23 (02/12/24: MET GOAL) Laboratory Phlebotomist Goal (LTG) Pt will be independent in a self care HEP for PF strengthening. 12/08/23: HEP: Kegels quick & Long Hold and Aggrevators 02/12/24: HEP: Kegel with transfers/breath, Sitting Kegels with 1)Ball squeeze, 2) BKFO w/TBand. Issued Level 1 TBand for HEP. Reviewed previously issued HEP of hip ER stretch (fig 4 with foot crossed over the knee or placed next to medial side of the opp knee. LTG Duration 10 wks-01/09/24 (02/12/24: MET GOAL for current status). Assessment Summary Assessment Pt is a 78 yo female who initially presented with diagnosis of uterovaginal prolapse, with complaints of DAE with coughing or sneezing; chronic constipation and pessary since 2000. The pt is being seen today for placement on a HEP; therefore a new plan of care is needed for today's session. The pt was able to attend 4 visits over ~4 months. On her last visit attended visit on 12/22/23 she removed her pessary just before therapy and when starting PF assessment, bleeding was noted in vaginal canal, so assessment was not performed. The pt was advised to return to her referring physician for vaginal check, but the pt reports not contacting her physician because she felt she had healed by the next day. Pt has pessary in today; therefore PF assesment is not performed. Per discussion, pt appears to have lessened her onset of urinary leakage with exercise, but is reporting a little urinary leakage and doesn't know if she will leak with coughing or sneezing because she has not had to do either since her last session. The pt is choosing to continue working independently on her HEP and to discharge from therapy today. She understands that if she feels she needs further therapy she will need to seek a new referral. The pt would probably benefit from skilled PT in the future if urinary leakage worsens. The pt did meet her goals, but is still having occasional urinary leakage. Physical Therapy Plan Frequency and Duration Frequency of Treatment 1x/Week Duration of treatment (weeks) 1 Plan of Care Start Date 02/12/24 Plan of Care End Date 02/12/24 Therapeutic Interventions Therapeutic Interventions Home Exercise Program,Self- Care/Home Management, Therapeutic Activities, Therapeutic Exercises Discharge Physical Therapy Discharge Comments The pt is being discharged from therapy today after her appointment and her plan of care has been updated. She has chosen a shortened treatment today for placement on a HEP and discharge. As stated above, the pt has occasional urinary leakage and plans to continue with her PF ex's and will seek a new referral if she feels further therapy is needed. Thank you for your referral.
== END 2024-02-17 13:57 | disposition home or self-care (01) ==
LOC: PHYS 11:15
PROVIDERS: Family Provider Family Medicine; PCP Family Medicine; Referring Provider Nurse Practitioner; Visit Provider Nurse Practitioner
DX: N81.4 Uterovaginal prolapse, unspecified (principal); M62.81 Muscle weakness (generalized); N39.3 Stress incontinence (female) (male); K59.00 Constipation, unspecified
CPT/HCPCS: 97110; 97162; 97535